=== PATIENT | female | born 1990 | race Caucasian/White ===

== ENCOUNTER → 2018-08-01 | Outpatient (CLI) | payer BC ==
--- NOTE | 2018-08-01 10:46 | Diagnostic Imaging Report ---
PROCEDURE: US Non-ob pelvis comp/trans. TECHNIQUE: Multiple realtime grayscale images were obtained of the pelvis in various projections endovaginally. Transabdominal imaging was also performed. INDICATION: Dysfunctional uterine bleeding. The uterus measures 6.7 x 4.0 x 3.1 cm. Endometrium is 8 mm in thickness. No uterine mass is identified. The right ovary measures 2.7 x 3.3 x 2.1 cm and the left ovary measures 2.2 x 2.2 x 2.2 cm. Right ovary does contain a 2.2 x 1.9 cm cyst. There is blood flow to the ovaries. No other adnexal mass or free fluid is seen. IMPRESSION: Right ovarian cyst. No other significant abnormality is seen. Dictated by: Dictated on workstation # [id number]
== END ==
LOC: RAD 09:01 → EDBD 09:01
PROVIDERS: ATTEND Nurse Practitioner
DX: N83.201 Unspecified ovarian cyst, right side (principal)
CPT/HCPCS: 76830; 76856